=== PATIENT | female | born 1935 | race Caucasian/White ===

== ENCOUNTER 2018-08-03 12:37 | Outpatient (CLI) | payer MEDICARE | END 2018-08-03 23:59 | disposition home or self-care (01) | LOC: VAS 12:37 | PROVIDERS: ATTEND Surgery | DX: T82.898A Other specified complication of vascular prosthetic devices, implants and grafts, initial encounter (principal) | CPT/HCPCS: 93922; 93925 ==

== ENCOUNTER 2019-11-02 11:45 | Day surgery (SDC) | payer MEDICARE ==
[~2019-11-02 11:45] MED LIST: AMLO2.5T2 PO; ASPI-611 PO; EZET10TA6 PO; FOLI0.4T14 PO; FURO20TA4 PO; LEVO750T46 PO; LORA10TA7 PO; MAG-154 PO; METH2.5T PO; METO25TA6 PO; NITR0.4T48 SL; OSC500T PO; RIVA15TA PO; SIMV-42 PO; TACR60OI TOP
[2019-11-02] MEDS ORDERED: LIDOcaine 2% 5ml jelly ONE (13:19)
== END 2019-11-02 14:01 | disposition home or self-care (01) ==
LOC: WOUND CARE 11:45
PROVIDERS: ATTEND Nurse Practitioner
DX: T81.89XA Other complications of procedures, not elsewhere classified, initial encounter (principal); I25.10 Atherosclerotic heart disease of native coronary artery without angina pectoris; L97.122 Non-pressure chronic ulcer of left thigh with fat layer exposed; L84 Corns and callosities; I11.0 Hypertensive heart disease with heart failure; I50.9 Heart failure, unspecified; M81.0 Age-related osteoporosis without current pathological fracture; M19.90 Unspecified osteoarthritis, unspecified site; I73.9 Peripheral vascular disease, unspecified; E78.5 Hyperlipidemia, unspecified; I25.2 Old myocardial infarction; Z79.82 Long term (current) use of aspirin; Z88.8 Allergy status to other drugs, medicaments and biological substances; Z88.1 Allergy status to other antibiotic agents; Z79.2 Long term (current) use of antibiotics; Z79.899 Other long term (current) drug therapy; Z90.710 Acquired absence of both cervix and uterus; Z79.01 Long term (current) use of anticoagulants; Z85.3 Personal history of malignant neoplasm of breast; Z86.711 Personal history of pulmonary embolism; Z95.1 Presence of aortocoronary bypass graft; Z86.73 Personal history of transient ischemic attack (TIA), and cerebral infarction without residual deficits; Z85.828 Personal history of other malignant neoplasm of skin; Z87.891 Personal history of nicotine dependence; Y83.8 Other surgical procedures as the cause of abnormal reaction of the patient, or of later complication, without mention of misadventure at the time of the procedure; Y92.238 Other place in hospital as the place of occurrence of the external cause
CPT/HCPCS: 97597

== ENCOUNTER 2019-11-03 10:27 | Emergency (ER) | payer MEDICARE ==
[~2019-11-03] VITALS: Ht 165.1 cm; Wt 67.4 kg
[2019-11-03 12:21] VITALS: BP 111/57
== END 2019-11-03 12:22 | disposition home or self-care (01) ==
LOC: ER 10:27
DX: T81.89XA Other complications of procedures, not elsewhere classified, initial encounter (principal); I25.10 Atherosclerotic heart disease of native coronary artery without angina pectoris; I25.2 Old myocardial infarction; Z98.890 Other specified postprocedural states; Z88.1 Allergy status to other antibiotic agents; Z88.8 Allergy status to other drugs, medicaments and biological substances; Z79.82 Long term (current) use of aspirin; Z79.2 Long term (current) use of antibiotics; Z79.899 Other long term (current) drug therapy
CPT/HCPCS: 99281

== ENCOUNTER 2019-11-05 12:00 | Day surgery (SDC) | payer MEDICARE ==
[2019-11-05] MEDS ORDERED: LIDOcaine 2% 5ml jelly ONE (13:02)
== END 2019-11-05 14:18 | disposition home or self-care (01) ==
LOC: WOUND CARE 12:00
PROVIDERS: ATTEND Nurse Practitioner
DX: T81.89XD Other complications of procedures, not elsewhere classified, subsequent encounter (principal); L97.122 Non-pressure chronic ulcer of left thigh with fat layer exposed; I25.10 Atherosclerotic heart disease of native coronary artery without angina pectoris; L84 Corns and callosities; I11.0 Hypertensive heart disease with heart failure; I50.9 Heart failure, unspecified; M81.0 Age-related osteoporosis without current pathological fracture; M19.90 Unspecified osteoarthritis, unspecified site; I73.9 Peripheral vascular disease, unspecified; E78.5 Hyperlipidemia, unspecified; I25.2 Old myocardial infarction; Z79.82 Long term (current) use of aspirin; Z79.2 Long term (current) use of antibiotics; Z79.899 Other long term (current) drug therapy; Z90.710 Acquired absence of both cervix and uterus; Z79.01 Long term (current) use of anticoagulants; Z85.3 Personal history of malignant neoplasm of breast; Z86.711 Personal history of pulmonary embolism; Z95.1 Presence of aortocoronary bypass graft; Z86.73 Personal history of transient ischemic attack (TIA), and cerebral infarction without residual deficits; Z85.828 Personal history of other malignant neoplasm of skin; Z87.891 Personal history of nicotine dependence; Y83.8 Other surgical procedures as the cause of abnormal reaction of the patient, or of later complication, without mention of misadventure at the time of the procedure
CPT/HCPCS: 97597

== ENCOUNTER 2019-11-11 13:25 | Day surgery (SDC) | payer MEDICARE ==
[2019-11-11] MEDS ORDERED: LIDOcaine 2% 5ml jelly ONE (14:17)
== END 2019-11-11 14:54 | disposition home or self-care (01) ==
LOC: WOUND CARE 13:25
PROVIDERS: ATTEND Nurse Practitioner
DX: T81.89XD Other complications of procedures, not elsewhere classified, subsequent encounter (principal); L97.122 Non-pressure chronic ulcer of left thigh with fat layer exposed; I25.10 Atherosclerotic heart disease of native coronary artery without angina pectoris; L84 Corns and callosities; I11.0 Hypertensive heart disease with heart failure; I50.9 Heart failure, unspecified; M81.0 Age-related osteoporosis without current pathological fracture; M19.90 Unspecified osteoarthritis, unspecified site; I73.9 Peripheral vascular disease, unspecified; E78.5 Hyperlipidemia, unspecified; I25.2 Old myocardial infarction; Z79.82 Long term (current) use of aspirin; Z79.2 Long term (current) use of antibiotics; Z79.899 Other long term (current) drug therapy; Z90.710 Acquired absence of both cervix and uterus; Z79.01 Long term (current) use of anticoagulants; Z85.3 Personal history of malignant neoplasm of breast; Z86.711 Personal history of pulmonary embolism; Z95.1 Presence of aortocoronary bypass graft; Z86.73 Personal history of transient ischemic attack (TIA), and cerebral infarction without residual deficits; Z85.828 Personal history of other malignant neoplasm of skin; Z87.891 Personal history of nicotine dependence; Y83.8 Other surgical procedures as the cause of abnormal reaction of the patient, or of later complication, without mention of misadventure at the time of the procedure
CPT/HCPCS: 97597

== ENCOUNTER 2019-11-18 11:55 | Day surgery (SDC) | payer MEDICARE ==
[2019-11-18] MEDS ORDERED: LIDOcaine 2% 5ml jelly ONE (12:51)
== END 2019-11-18 13:36 | disposition home or self-care (01) ==
LOC: WOUND CARE 11:55
PROVIDERS: ATTEND Nurse Practitioner
DX: T81.89XD Other complications of procedures, not elsewhere classified, subsequent encounter (principal); L97.122 Non-pressure chronic ulcer of left thigh with fat layer exposed; I25.10 Atherosclerotic heart disease of native coronary artery without angina pectoris; L84 Corns and callosities; I11.0 Hypertensive heart disease with heart failure; I50.9 Heart failure, unspecified; M81.0 Age-related osteoporosis without current pathological fracture; M19.90 Unspecified osteoarthritis, unspecified site; I73.9 Peripheral vascular disease, unspecified; E78.5 Hyperlipidemia, unspecified; I25.2 Old myocardial infarction; Z79.82 Long term (current) use of aspirin; Z79.2 Long term (current) use of antibiotics; Z79.899 Other long term (current) drug therapy; Z90.710 Acquired absence of both cervix and uterus; Z79.01 Long term (current) use of anticoagulants; Z85.3 Personal history of malignant neoplasm of breast; Z86.711 Personal history of pulmonary embolism; Z95.1 Presence of aortocoronary bypass graft; Z86.73 Personal history of transient ischemic attack (TIA), and cerebral infarction without residual deficits; Z85.828 Personal history of other malignant neoplasm of skin; Z87.891 Personal history of nicotine dependence; Y83.8 Other surgical procedures as the cause of abnormal reaction of the patient, or of later complication, without mention of misadventure at the time of the procedure
CPT/HCPCS: 97597

== ENCOUNTER 2019-11-25 13:53 | Day surgery (SDC) | payer MEDICARE ==
[2019-11-25] MEDS ORDERED: LIDOcaine 2% 5ml jelly ONE (14:10)
== END 2019-11-25 14:50 | disposition home or self-care (01) ==
LOC: WOUND CARE 13:53
PROVIDERS: ATTEND Nurse Practitioner
DX: T81.89XD Other complications of procedures, not elsewhere classified, subsequent encounter (principal); L97.122 Non-pressure chronic ulcer of left thigh with fat layer exposed; I25.10 Atherosclerotic heart disease of native coronary artery without angina pectoris; L84 Corns and callosities; I11.0 Hypertensive heart disease with heart failure; I50.9 Heart failure, unspecified; M81.0 Age-related osteoporosis without current pathological fracture; M19.90 Unspecified osteoarthritis, unspecified site; I73.9 Peripheral vascular disease, unspecified; E78.5 Hyperlipidemia, unspecified; I25.2 Old myocardial infarction; Z79.82 Long term (current) use of aspirin; Z79.2 Long term (current) use of antibiotics; Z79.899 Other long term (current) drug therapy; Z90.710 Acquired absence of both cervix and uterus; Z79.01 Long term (current) use of anticoagulants; Z85.3 Personal history of malignant neoplasm of breast; Z86.711 Personal history of pulmonary embolism; Z95.1 Presence of aortocoronary bypass graft; Z86.73 Personal history of transient ischemic attack (TIA), and cerebral infarction without residual deficits; Z85.828 Personal history of other malignant neoplasm of skin; Z87.891 Personal history of nicotine dependence; Y83.8 Other surgical procedures as the cause of abnormal reaction of the patient, or of later complication, without mention of misadventure at the time of the procedure
CPT/HCPCS: 97597

== ENCOUNTER 2019-12-02 14:00 | Outpatient (CLI) | payer MEDICARE ==
[2019-12-02] MEDS ORDERED: LIDOcaine 2% 5ml jelly ONE (14:38)
== END 2019-12-02 14:45 | disposition home or self-care (01) ==
LOC: EDSTATUS 14:00 → WOUND CARE 14:00
PROVIDERS: ATTEND Nurse Practitioner
DX: T81.89XD Other complications of procedures, not elsewhere classified, subsequent encounter (principal); L97.122 Non-pressure chronic ulcer of left thigh with fat layer exposed; I25.10 Atherosclerotic heart disease of native coronary artery without angina pectoris; L84 Corns and callosities; I11.0 Hypertensive heart disease with heart failure; I50.9 Heart failure, unspecified; M81.0 Age-related osteoporosis without current pathological fracture; M19.90 Unspecified osteoarthritis, unspecified site; I73.9 Peripheral vascular disease, unspecified; E78.5 Hyperlipidemia, unspecified; I25.2 Old myocardial infarction; Z79.82 Long term (current) use of aspirin; Z79.2 Long term (current) use of antibiotics; Z79.899 Other long term (current) drug therapy; Z90.710 Acquired absence of both cervix and uterus; Z79.01 Long term (current) use of anticoagulants; Z85.3 Personal history of malignant neoplasm of breast; Z86.711 Personal history of pulmonary embolism; Z95.1 Presence of aortocoronary bypass graft; Z86.73 Personal history of transient ischemic attack (TIA), and cerebral infarction without residual deficits; Z85.828 Personal history of other malignant neoplasm of skin; Z87.891 Personal history of nicotine dependence; Y83.8 Other surgical procedures as the cause of abnormal reaction of the patient, or of later complication, without mention of misadventure at the time of the procedure
CPT/HCPCS: 97597

== ENCOUNTER 2022-01-04 20:12 | Inpatient (IN) | payer MEDICARE ==
[~2022-01-04] VITALS: Ht 165.1 cm; Wt 59.1 kg
[~2022-01-04 20:12] MED LIST changes: -LEVO750T46 PO; +LOP25T PO; -METO25TA6 PO
[2022-01-04] MEDS ORDERED: temazepam 15mg capsule PO PRN (21:00)
[2022-01-04] MEDS ORDERED: iohexol 350MG/ML 100ml bottle IV ONE (21:15)
[2022-01-04 21:26] LABS: CLARITY,URINE CLOUDY (Clear); COLOR,URINE YELLOW (Yellow); GLUCOSE, URINE NEGATIVE (Neg); KETONES,URINE NEGATIVE (Neg); LEUKOCYTE ESTERASE ,URINE SMALL (Neg); NITRITES, URINE NEGATIVE (Neg); OCCULT BLOOD,URINE LARGE (Neg); PH,URINE 7.5 (4.8-8.0); PROTEIN,URINE 100 mg/dl (Neg); UROBILINOGEN,URINE 0.2 E.U/dL (0.2-1.0)
[2022-01-04 21:28] LABS: BASOPHILS # (AUTO) 0.1 X10'3 (0-0.2); BASOPHILS % (AUTO) 1.9 % (0-1); EOSINOPHILS # (AUTO) 0.9 X10'3 (0-0.9); EOSINOPHILS % (AUTO) 11.5 % (0-6); HEMATOCRIT 40.9 % (35.0-45.0); HEMOGLOBIN 13.5 g/dl (12.0-16.0); LYMPHOCYTES # (AUTO) 1.7 X10'3 (1.1-4.8); LYMPHOCYTES % (AUTO) 21.3 % (21-51); MEAN CORPUSCULAR HEMOGLOBIN 30.5 PG (27.0-31.0); MEAN CORPUSCULAR HGB CONC 33.2 g/dL (33.0-36.5); MEAN CORPUSCULAR VOLUME 91.9 FL (78-98); MEAN PLATELET VOLUME 7.5 FL (7.4-10.4); MONOCYTES % (AUTO) 12.2 % (2-12); NEUTROPHILS # (AUTO) 4.1 X10'3 (1.8-7.7); NEUTROPHILS % (AUTO) 53.1 % (42-75); PLATELET COUNT 271 X10'3 (140-440); RED BLOOD COUNT 4.44 X10'6 (4.20-5.60); RED CELL DISTRIBUTION WIDTH 13.3 % (11.5-14.5); WHITE BLOOD COUNT 7.8 X10'3 (4.5-11.0)
[2022-01-04 21:36] LABS: ALANINE AMINOTRANSFERASE 14 U/L (12-78); ALBUMIN 3.2 G/DL (3.4-5.0); ALBUMIN/GLOBULIN RATIO 0.7 (1.1-1.5); ALKALINE PHOSPHATASE 68 IU/L (46-116); ANION GAP 5 (8-16); ASPARTATE AMINO TRANSFERASE 11 U/L (10-37); BILIRUBIN,TOTAL 0.3 MG/DL (0.1-1.0); BLOOD UREA NITROGEN 27 MG/DL (7-18); BUN/CREATININE RATIO 24.8 (6.6-38.0); CALCIUM 9.4 MG/DL (8.5-10.1); CHLORIDE 109 MMOL/L (99-107); CREATININE 1.09 MG/DL (0.40-0.90); GLUCOSE 133 MG/DL (70-104); POTASSIUM 4.1 MMOL/L (3.5-5.1); SODIUM 144 MMOL/L (135-145); TOTAL CARBON DIOXIDE 29.7 MMOL/L (24-32); TOTAL PROTEIN 7.6 G/DL (6.4-8.2); eGFR 47 ML/MIN
[2022-01-04 21:38] LABS: UA COLLECTION TYPE CLN CATCH MIDSTREAM
[2022-01-04 21:39] LABS: BACTERIA,URINE 2+ /HPF (Neg); RBC,URINE 20-50 /HPF (0-2); SQUAMOUS EPITHELIAL CELL,UR FEW /LPF (FEW); TRANSITIONAL EPI CELLS,URINE FEW /HPF
[2022-01-04] MEDS ORDERED: acetaminophen 325mg tablet PO ONE (21:40)
[2022-01-04 21:46] LABS: APTT 33 SECONDS (22-32)
[2022-01-04] MEDS ORDERED: mag hydrox/Alum hydrox/simeth 30ml oral suspension PO PRN (23:00)
[2022-01-04] MEDS ORDERED: ondansetron/PF 4mg/2ml inj IV PRN (23:00)
[2022-01-04] MEDS ORDERED: acetaminophen 650mg rectal suppository RC PRN (23:00)
[2022-01-04] MEDS ORDERED: magnesium hydroxide 30ml (MOM) UD suspension PO PRN (23:00)
[2022-01-04] MEDS ORDERED: diphenhydrAMINE 25mg capsule PO PRN (23:00)
[2022-01-04] MEDS ORDERED: ondansetron 4mg rapidly disintigrating tab PO PRN (23:00)
[2022-01-04] MEDS ORDERED: morphine 2 MG/ML inj. syringe IV PRN (23:00)
[2022-01-04] MEDS ORDERED: acetaminophen 325mg tablet PO PRN ×2 (23:00)
[2022-01-04] MEDS ORDERED: HYDROcodone/acetaminophen 5mg/325mg tablet PO PRN (23:00)
[2022-01-04] MEDS ORDERED: bisacodyl 10mg suppository rectal RC PRN (23:00)
[2022-01-04] MEDS ORDERED: normal saline 1000ml 1,000 ML IV SCH (23:00)
[2022-01-04] MEDS ORDERED: diphenhydrAMINE 50 mg/ml inj IV PRN (23:00)
[2022-01-04] MEDS ORDERED: CefTRIAXone/D5W-Rocephin 1gm 50 ML IV ONE (23:05)
--- NOTE | 2022-01-04 23:33 | NUR ---
jennifer gill (son) [phone]
[2022-01-04 23:40] LABS: MAGNESIUM 1.8 MG/DL (1.5-2.4); PHOSPHORUS 3.2 MG/DL (2.3-4.5)
[2022-01-04] MEDS ORDERED: FOLI1TAB27 PO (23:55)
[2022-01-05] MEDS ORDERED: GUSE100A SUBCUT (00:06)
[2022-01-05] MEDS ORDERED: RIVA10TA PO ×2 (00:06→01:33)
[2022-01-05] MEDS ORDERED: ALEN70TA80 PO (00:06)
[2022-01-05] MEDS ORDERED: AMLO5TAB16 PO (00:09)
[2022-01-05] MEDS ORDERED: RIVA15TA PO (01:31)
[2022-01-05] MEDS ORDERED: MULT-1074 PO (01:34)
[2022-01-05] MEDS ORDERED: MOME45CR3 TOP (01:40)
--- NOTE | 2022-01-05 02:00 | NUR ---
PTS SATURATIONS DROP WHILE ASLEEP TO 87/88. PUT PT ON 2L NC AND SATS 96%. DR CARRENO GAVE VERBAL ORDER TO MAINTAIN SATS ABOVE 94%.
[2022-01-05] MEDS ORDERED: FOSAMAX 70 MG PO SCH (03:15)
[2022-01-05] MEDS ORDERED: mometasone furoate 0.1% cream 15gm tube TP PRN (03:15)
[2022-01-05] MEDS ORDERED: GUSELKUMAB IJ SCH (03:15)
[2022-01-05] MEDS ORDERED: mometasone furoate 0.1% ointment 15g TP PRN (03:30)
[2022-01-05 04:36] LABS: BASOPHILS # (AUTO) 0.1 X10'3 (0-0.2); BASOPHILS % (AUTO) 1.5 % (0-1); EOSINOPHILS % (AUTO) 14.2 % (0-6); HEMATOCRIT 36.8 % (35.0-45.0); LYMPHOCYTES # (AUTO) 1.9 X10'3 (1.1-4.8); LYMPHOCYTES % (AUTO) 27.9 % (21-51); MEAN CORPUSCULAR HGB CONC 32.8 g/dL (33.0-36.5); MEAN CORPUSCULAR VOLUME 91.6 FL (78-98); MEAN PLATELET VOLUME 7.5 FL (7.4-10.4); MONOCYTES % (AUTO) 14.6 % (2-12); NEUTROPHILS # (AUTO) 2.9 X10'3 (1.8-7.7); NEUTROPHILS % (AUTO) 41.8 % (42-75); PLATELET COUNT 236 X10'3 (140-440); RED BLOOD COUNT 4.01 X10'6 (4.20-5.60); RED CELL DISTRIBUTION WIDTH 13.5 % (11.5-14.5); WHITE BLOOD COUNT 6.8 X10'3 (4.5-11.0)
[2022-01-05 04:54] LABS: ALANINE AMINOTRANSFERASE 12 U/L (12-78); ALBUMIN 2.7 G/DL (3.4-5.0); ALBUMIN/GLOBULIN RATIO 0.7 (1.1-1.5); ALKALINE PHOSPHATASE 54 IU/L (46-116); ANION GAP 8 (8-16); ASPARTATE AMINO TRANSFERASE 11 U/L (10-37); BILIRUBIN,TOTAL 0.2 MG/DL (0.1-1.0); BLOOD UREA NITROGEN 25 MG/DL (7-18); BUN/CREATININE RATIO 31.6 (6.6-38.0); CALCIUM 8.9 MG/DL (8.5-10.1); CHLORIDE 109 MMOL/L (99-107); CHOL/HDL RATIO 2.6 (0.00-4.99); CHOLESTEROL 100 MG/DL (0-200); CREATININE 0.79 MG/DL (0.40-0.90); GLUCOSE 103 MG/DL (70-104); HDL CHOLESTEROL 39 MG/DL (35-60); LDL CHOLESTEROL 46 MG/DL (50-100); POTASSIUM 4.1 MMOL/L (3.5-5.1); SODIUM 142 MMOL/L (135-145); TOTAL CARBON DIOXIDE 25.4 MMOL/L (24-32); TOTAL PROTEIN 6.5 G/DL (6.4-8.2); TRIGLYCERIDES 100 MG/DL (20-135); eGFR 69 ML/MIN
[2022-01-05] MEDS ORDERED: pantoprazole 40mg Tablet.DR PO SCH (07:30)
--- NOTE | 2022-01-05 07:30 | NUR ---
Pt taken off [facility] and placed on hospital bed.
[2022-01-05] MEDS ORDERED: nitroGLYCERIN 0.4mg SUBLingual tab SL SCH (08:00)
[2022-01-05] MEDS ORDERED: aspirin 81mg, enteric-coated 1 TAB TABLET.DR PO SCH (08:00)
[2022-01-05] MEDS ORDERED: ezetimibe 10mg tablet PO SCH (08:00)
[2022-01-05] MEDS ORDERED: CefTRIAXone/D5W-Rocephin 1gm 50 ML IV SCH (08:00)
[2022-01-05] MEDS ORDERED: docusate sod 100mg capsule PO SCH (08:00)
--- NOTE | 2022-01-05 08:30 | NUR ---
Pt taken from [facility] room 3 and placed into room 3.
--- NOTE | 2022-01-05 11:00 | NUR ---
Pt going to MRI.
--- NOTE | 2022-01-05 12:10 | NUR ---
Pt back from MRI
[2022-01-05 16:02] VITALS: BP 133/64
--- NOTE | 2022-01-05 16:08 | NUR ---
PATIENT IS DC HOME, ATTEMPTING TO PRINT DC INSTRUCTIONS, BUT MEDICATION REC HAS CONFLICT. MESSAGE TO DR. ALDRIDGE TO RESOLVE CONFLICT ON MED REC, SO PATIENT CAN BE DC HOME. PAGER ID: [id number] MESSAGE: ER BED #[id number]. PATIENT IS DC HOME BUT THERE IS A PROBLEM WITHTHE MEDICATION REC ON THE DC INSTRUCTIONS. PLEASE FIX THE CONFLICT SO DC INSTRUCTIONS CAN BE PRINTED FOR PATIENT. THANKS, ENEIDA [id number]
[2022-01-05] MEDS ORDERED: APIX5TAB3 PO (17:57)
[2022-01-05] MEDS ORDERED: SULF1TAB48 PO (19:08)
[2022-01-05] MEDS ORDERED: atorvastatin 20mg tablet PO SCH (21:00)
[2022-01-06] MEDS ORDERED: FOSAMAX 70 MG PO SCH (07:30)
--- NOTE | 2022-01-06 10:43 | NUR ---
Paged Dr. Roblero regarding patients son, Jennifer Archie, calling due to antibiotic never being prescribed at time of discharge. Patient diagnosed with UTI and Jennifer stated patient was supposed to be placed on bactrim. I explained that I would have to call jennifer back and requested a good call back number for him. Patients home phone [phone] [facility] cell phone number [phone]
--- NOTE | 2022-01-06 11:51 | NUR ---
Called in prescription for bactrim 400-80 mg tablets 1 tab PO BID x 5 days total 10 to [facility] per patients request after obtaining verbal prescription from Dr. Roblero.
== END 2022-01-05 19:30 | disposition home or self-care (01) | DRG 65 ==
LOC: ER 20:12 → ED HOLD 23:02
PROVIDERS: ADMIT Family Medicine; ATTEND Internal Medicine
PROC: B3251ZZ Computerized Tomography (CT Scan) of Bilateral Common Carotid Arteries using Low Osmolar Contrast (ICD-10-PCS; principal; 2022-01-04)
PROC: B32G1ZZ Computerized Tomography (CT Scan) of Bilateral Vertebral Arteries using Low Osmolar Contrast (ICD-10-PCS; 2022-01-04)
PROC: B32R1ZZ Computerized Tomography (CT Scan) of Intracranial Arteries using Low Osmolar Contrast (ICD-10-PCS; 2022-01-04)
PROC: B3281ZZ Computerized Tomography (CT Scan) of Bilateral Internal Carotid Arteries using Low Osmolar Contrast (ICD-10-PCS; 2022-01-04)
DX: I63.89 Other cerebral infarction (principal); D84.821 Immunodeficiency due to drugs; I13.0 Hypertensive heart and chronic kidney disease with heart failure and stage 1 through stage 4 chronic kidney disease, or unspecified chronic kidney disease; I16.1 Hypertensive emergency; I50.32 Chronic diastolic (congestive) heart failure; I69.354 Hemiplegia and hemiparesis following cerebral infarction affecting left non-dominant side; N17.9 Acute kidney failure, unspecified; N39.0 Urinary tract infection, site not specified; N18.9 Chronic kidney disease, unspecified; E78.00 Pure hypercholesterolemia, unspecified; R29.702 NIHSS score 2; I25.10 Atherosclerotic heart disease of native coronary artery without angina pectoris; I48.0 Paroxysmal atrial fibrillation; M19.90 Unspecified osteoarthritis, unspecified site; I73.9 Peripheral vascular disease, unspecified; L40.9 Psoriasis, unspecified; I25.2 Old myocardial infarction; Z79.01 Long term (current) use of anticoagulants; Z79.60 Long term (current) use of unspecified immunomodulators and immunosuppressants; Z79.899 Other long term (current) drug therapy; Z86.711 Personal history of pulmonary embolism; Z86.79 Personal history of other diseases of the circulatory system; Z95.1 Presence of aortocoronary bypass graft; Z88.8 Allergy status to other drugs, medicaments and biological substances; Z79.82 Long term (current) use of aspirin
CPT/HCPCS: 36415; 70450; 70496; 70498; 70551; 71045; 80053; 80061; 81001; 83036; 83735; 83880; 84100; 84443; 85025; 85610; 85730; 87088; 93306; 97161; 97530; 99285; A4615; G0378; J0696; J3490; J7030; Q9967